=== PATIENT | female | born 1935 | race Caucasian/White ===

== ENCOUNTER 2025-08-10 16:49 | Inpatient (IN) | payer MEDICARE, SELFPAY ==
--- NOTE | 2025-08-10 17:12 | W.PM.HP.N ---
Date of service: 08/10/25 Time of Service: 18:58 Assessment and Plan Assessment and plan (1) Atrial fibrillation: Status: Chronic Assessment and plan: Hx of A-fib - in NSR as per EP Ablation and Watchman [place] [facility] [place] subsequent development of confusion On amiodarone until 09/07 On Eliquis On metoprolol succinate telemetry (2) History of cardiac ablation: Status: Acute Assessment and plan: As above (3) Presence of Watchman left atrial appendage closure device: Status: Acute Assessment and plan: As abode [facility] [place] to arrange ARIES outpatient in 45 days (4) HTN (hypertension): Status: Chronic Assessment and plan: Imdur and Losartan held prior to transfer from [facility] Ongoing Toprol Will continue to monitor (5) Orthostatic hypotension: Status: Acute Assessment and plan: Dr Downing reported ARIES w EF 45% mostl likely d/t intuibation during completion - could not have an evaluation of her IVC Ortho positive on arrival depite uncomplete eval - would not wincher place for BP reading Slow IVF tonight Labs in AM (6) Delirium secondary to multiple medical problems: Status: Acute Assessment and plan: Consider head CT in AM if confusion persist overnight -if not done [place] [facility] Seroquel 12.5 mg PO X1 - low threshold to repeat d/t amiodarone Zoloft held [place] [facility] On ongoing cymbalta discussed with Dr. Guadarrama History of Present Illness History of Present Illness Chief Complaint: orthostasis, confusion , unsteady gait Narrative: This 89 years old female patient with a past medical history of HTN, atrial fibrillation s/p completion of ablation and watchman [place]07/[place] [facility] [place] transferred to [facility] today due to acute confusion m with suspicion of a component of undiagnosed dementia and delirium in the setting of acute hospitalization as welll as urinary retention with blodder scan 500-600 cc and 200cc s/p void when staff insisted. Dr. Downing indicated that amiodarone should be ongoing until 09/07/2025 and eliquis 2.5 mg PO BID until ARIES that will be arranged by EP is completed outpatient in 45 days. The patient also had zyprexa once and no other antipsychotics. On arrival the patient was confused, insisting on speaking to her daughter. She has no recollection when oriented, and thinks she is going home. The patient is a poor historian at this time but no report of chest pain, chills, fever , nausea , vomiting or dysuria. Will attempt to obtain a more complete history as the patient is not receiving outpatient care in the [facility] system. Review of Systems All systems reviewed & are unremarkable except as noted in HPI and below PFSH All Active Problems (Updated 08/10/25 @ 19:18 by Nicole Louis APRN) Delirium secondary to multiple medical problems (Acute) Orthostatic hypotension (Acute) HTN (hypertension) (Chronic) Presence of Watchman left atrial appendage closure device (Acute) History of cardiac ablation (Acute) Atrial fibrillation (Chronic) Social History Smoking risk assessment performed?: No Meds Allergies and Home Medications Allergies Allergy/AdvReac Type Severity Reaction Status Date / Time No Known Drug Allergies Allergy Unknown Other (See Verified 08/10/25 19:03 Comment) Home Medications ?Medication ?Instructions ?Recorded ?Confirmed ?Type amiodarone 200 mg tablet (Pacerone) 200 mg PO DAILY 08/10/25 08/10/25 History apixaban 2.5 mg tablet (Eliquis) 2.5 mg PO BID 08/10/25 08/10/25 History duloxetine 20 mg capsule,delayed 20 mg PO DAILY 08/10/25 08/10/25 History release fluoxetine 10 mg capsule (Prozac) 10 mg PO DAILY 08/10/25 08/10/25 History metoprolol succinate 25 mg 25 mg PO BID 08/10/25 08/10/25 History tablet,extended release 24 hr Exam Narrative Exam Narrative: Alert and confused, no acute distress, neurologically intact,unlabored breathing, clear lungs S1 S2 regular no murmur, LUE hematoma- stable, abdomen is non-acute, no CVA tenderness , moves all 4 extremities equally Time Spent Time spent with Patient: >75 minutes Time was spent: preparing to see the patient(eg.review tests), obtaining and/or reviewing separately otained hiistory, ordering medications,tests, procedures, referring, communicating with other health point of care specialist, indepentently interpreting results, counseling the patient, care coordination and other
[2025-08-10 18:24] VITALS: BP 134/88; PULSE 89; RESP 20; TEMP 37; O2SAT 92
[2025-08-10] MEDS: QUEtiapine 25 MG TAB 12.5 MG PO (18:40)
--- NOTE | 2025-08-10 18:54 | W.PC.ACHO ---
Registration Status: ADM IN Primary Language: Preferred Language: Most Recent Vital Signs Temperature 37 C 08/10/25 18:24 Temperature Source Temporal Artery Scan 08/10/25 18:24 Pulse 89 08/10/25 18:24 Respiratory Rate 20 08/10/25 18:24 Blood Pressure 134/88 08/10/25 18:24 Blood Pressure Mean 103 08/10/25 18:24 Pulse Oximetry 92 08/10/25 18:24 Oxygen Delivery Method Nasal Cannula 08/10/25 18:24 Oxygen Flow Rate 2 08/10/25 18:24 Active Medications Generic Name Dose Route Start Last Admin Trade Name Freq PRN Reason Stop Dose Admin Quetiapine Fumarate 12.5 mg 08/10/25 17:03 08/10/25 18:40 Quetiapine 25 Mg Tab PO 12.5 mg HS PRN PRN Administration Diet Orders Category Date Time Status Heart Healthy Eating [DIET] Nutrition 08/10/25 Dinner Active v v v v v v v v v Sending and/or Receiving Nurses: Please use comment section below to note any information pertinent to the patient hand-off not included above. Information / Comments: Report received from: Iza @ 1805 from [facility]. Pt arrived to the unit @1820.
--- NOTE | 2025-08-10 19:33 | TELEP.MEDR_ITS ---
Date of service: 08/10/25 Time of Service: 19:33 [facility] Med Rec Allergies Allergies: No Known Drug Allergies Allergy (Unknown, Verified 08/10/25 19:03) Other (See Comment) Interview Person Interviewed: Patient transfer from [facility] discharge summary reviewed in lieu of patent interview due to delirium post-procedure. MAR reviewed for previous administrations. Quality Quality of Interview/Accuracy of Medication List: Excellent Sources Sources used to compile medication list: MAR and Other Changes made to Home Medication List: ADDITIONS: none DELETIONS: fluoxetine - discontinued in 2023 CHANGES: Please note changes from home meds: * apixaban was dose reduced to 2.5mg BID * losartan DC * isosorbide mono 30mg DC Additional Notes Additional Notes: Prior to inpatient stay patient was also on Simvastatin 5mg and omeprazole 40mg QD which have not been reordered, please review. Recommended Changes Attestation: The home medication list is now updated to the best of my knowledge and is ready to be reconciled by the provider. Please contact the [facility] Medication Reconciliation Pharmacist at for any questions. Meds Allergies and Home Medications Allergies Allergy/AdvReac Type Severity Reaction Status Date / Time No Known Drug Allergies Allergy Unknown Other (See Verified 08/10/25 19:03 Comment) Home Medication ?Medication ?Instructions ?Recorded amiodarone 200 mg tablet (Pacerone) 200 mg PO DAILY apixaban 2.5 mg tablet (Eliquis) 2.5 mg PO BID 5 duloxetine 20 mg capsule,delayed 20 mg PO DAILY release metoprolol succinate 25 mg 25 mg PO BID 08/10/25 tablet,extended release 24 hr Current Visit Medications: Current Medications Generic Name Dose Route Start Last Admin Trade Name Freq PRN Reason Stop Dose Admin Acetaminophen 1,000 mg 08/10/25 20:00 Acetaminophen 500 Mg Tab PO TID VANGIE Al Hydrox/Mg Hydrox/Simethicone 30 ml 08/10/25 16:49 Mylanta Suspension 30 Ml Cup PO Q2H PRN PRN Albuterol Sulfate 2.5 mg 08/10/25 16:49 Albuterol 2.5 Mg/3 Ml Inh Soln Vial UPD Q2H PRN PRN Albuterol/Ipratropium 3 ml 08/10/25 16:49 Albuterol/Ipratropium 3 Ml Upd Vial UPD Q6H PRN PRN Amiodarone HCl 200 mg 08/11/25 08:30 Amiodarone 200 Mg Tab PO 09/07/25 23:59 DAILY [facility] Apixaban 2.5 mg 08/10/25 20:00 Apixaban 2.5 Mg Tab PO BID [facility] Docusate Sodium 100 mg 08/10/25 20:00 Docusate Sodium 100 Mg Cap PO BID [facility] Duloxetine HCl 20 mg 08/11/25 08:30 Duloxetine 20 Mg Cap PO DAILY [facility] Ringer's Solution 1,000 mls @ 50 mls/hr 08/10/25 19:00 IV 08/11/25 07:00 INFUSION [facility] IV Miscellaneous Supplies 1 each 08/10/25 17:00 Iv Access IV DIRECTED [facility] Melatonin 9 mg 08/10/25 20:00 Melatonin 3 Mg Tab PO HS [facility] Metoprolol Succinate 25 mg 08/10/25 20:00 Metoprolol Cr 25 Mg Tabcr PO BID [facility] Omeprazole 40 mg 08/11/25 07:30 Omeprazole 20 Mg Capcr PO DAILY@0730 [facility] Polyethylene Glycol 17 gm 08/11/25 08:30 Polyethylene Glycol 3350 17 Gm Packet PO DAILY [facility] Quetiapine Fumarate 12.5 mg 08/10/25 17:03 08/10/25 18:40 Quetiapine 25 Mg Tab PO 12.5 mg HS PRN PRN Administration Sodium Chloride 0 ml 08/10/25 16:49 Normal Saline Flush 10 Ml Syr IVP PRN PRN Sodium Chloride 0 ml 08/10/25 20:00 Normal Saline Flush 10 Ml Syr IVP BID [facility] Sodium Chloride 0 ml 08/10/25 16:49 Normal Saline 10 Ml Vial IJ DIRECTED PRN
--- NOTE | 2025-08-10 19:33 | TELEP.MEDREC ---
Date of service: 08/10/25 Time of Service: 19:33 [facility] Allergies Allergies: No Known Drug Allergies Allergy (Unknown, Verified 08/10/25 19:03) Other (See Comment) Interview Person Interviewed: Patient transfer from [facility] discharge summary reviewed in lieu of patent interview due to delirium post-procedure. MAR reviewed for previous administrations. Quality Quality of Interview/Accuracy of Medication List: Excellent Sources Sources used to compile medication list: MAR and Other Changes made to Home Medication List: ADDITIONS: none DELETIONS: fluoxetine - discontinued in 2023 CHANGES: Please note changes from home meds: apixaban was dose reduced to 2.5mg BID losartan DC isosorbide mono 30mg DC Additional Notes Additional Notes: Prior to inpatient stay patient was also on Simvastatin 5mg and omeprazole 40mg QD which have not been reordered, please review. Recommended Changes Attestation: The home medication list is now updated to the best of my knowledge and is ready to be reconciled by the provider. [facility] Med[facility] Reconciliation Pharmacist at for any questions. Meds Allergies and Home Medications Allergies Allergy/AdvReac Type Severity Reaction Status Date / Time No Known Drug Allergies Allergy Unknown Other (See Verified 08/10/25 19:03 Comment) Home Medication ?Medication ?Instructions ?Recorded amiodarone 200 mg tablet (Pacerone) 200 mg PO DAILY 08/10/25 apixaban 2.5 mg tablet (Eliquis) 2.5 mg PO BID 08/10/25 duloxetine 20 mg capsule,delayed 20 mg PO DAILY 08/10/25 release metoprolol succinate 25 mg 25 mg PO BID 08/10/25 tablet,extended release 24 hr Current Visit Medications: Current Medications Generic Name Dose Route Start Last Admin Trade Name Freq PRN Reason Stop Dose Admin Acetaminophen 1,000 mg 08/10/25 20:00 Acetaminophen 500 Mg Tab PO TID VANGIE Al Hydrox/Mg Hydrox/Simethicone 30 ml 08/10/25 16:49 Mylanta Suspension 30 Ml Cup PO Q2H PRN PRN Albuterol Sulfate 2.5 mg 08/10/25 16:49 Albuterol 2.5 Mg/3 Ml Inh Soln Vial UPD Q2H PRN PRN Albuterol/Ipratropium 3 ml 08/10/25 16:49 Albuterol/Ipratropium 3 Ml Upd Vial UPD Q6H PRN PRN Amiodarone HCl 200 mg 08/11/25 08:30 Amiodarone 200 Mg Tab PO 09/07/25 23:59 DAILY [facility] Apixaban 2.5 mg 08/10/25 20:00 Apixaban 2.5 Mg Tab PO BID [facility] Docusate Sodium 100 mg 08/10/25 20:00 Docusate Sodium 100 Mg Cap PO BID [facility] Duloxetine HCl 20 mg 08/11/25 08:30 Duloxetine 20 Mg Cap PO DAILY [facility] Ringer's Solution 1,000 mls @ 50 mls/hr 08/10/25 19:00 IV 08/11/25 07:00 INFUSION [facility] IV Miscellaneous Supplies 1 each 08/10/25 17:00 Iv Access IV DIRECTED [facility] Melatonin 9 mg 08/10/25 20:00 Melatonin 3 Mg Tab PO HS [facility] Metoprolol Succinate 25 mg 08/10/25 20:00 Metoprolol Cr 25 Mg Tabcr PO BID [facility] Omeprazole 40 mg 08/11/25 07:30 Omeprazole 20 Mg Capcr PO DAILY@0730 [facility] Polyethylene Glycol 17 gm 08/11/25 08:30 Polyethylene Glycol 3350 17 Gm Packet PO DAILY [facility] Quetiapine Fumarate 12.5 mg 08/10/25 17:03 08/10/25 18:40 Quetiapine 25 Mg Tab PO 12.5 mg HS PRN PRN Administration Sodium Chloride 0 ml 08/10/25 16:49 Normal Saline Flush 10 Ml Syr IVP PRN PRN Sodium Chloride 0 ml 08/10/25 20:00 Normal Saline Flush 10 Ml Syr IVP BID VANGIE Sodium Chloride 0 ml 08/10/25 16:49 Normal Saline 10 Ml Vial IJ DIRECTED PRN
[2025-08-10] MEDS: Metoprolol CR 25 MG TABCR PO (19:57)
[2025-08-10] MEDS: Docusate Sodium 100 MG CAP PO (19:57)
[2025-08-10] MEDS: Acetaminophen 500 MG TAB 1000 MG PO (19:57)
[2025-08-10] MEDS: Apixaban 2.5 MG TAB PO (19:58)
[2025-08-10] MEDS: Melatonin 3 MG TAB 9 MG PO (19:58)
[2025-08-10] MEDS: Normal Saline Flush 10 ML SYR IVP (20:02)
[2025-08-11] VITALS (8 sets, daily range): BP systolic 89–142; BP diastolic 59–85; PULSE 66–85; RESP 16–17; TEMP 36.5–37.5; O2SAT 91–99
[2025-08-11 00:25] LABS: Glucose Negative (Negative)
[2025-08-11] MEDS: Lactated Ringers 1,000 ML 50 ML IV (01:19)
[2025-08-11 06:45] LABS: Abs Immature Grans 0.01 10^3/uL (0.0-0.06); HCT 24.8 % (36.0-46.0); HGB 8.3 g/dL (11.2-15.7); Immature Grans % 0.2 %; MCH 35.3 pg (27.0-33.0); MCHC 33.5 % (32.0-36.0); MCV 106 fL (80-95); MPV 10.7 fL (8.0-11.0); Platelet Count 233 10^3/uL (130-400); RBC 2.35 10^6/uL (3.93-5.22); RDW 16.7 % (11.7-14.6); RDW-SD 62.5 fL; WBC 4.35 10^3/uL (4.4-10.8)
[2025-08-11 07:03] LABS: ALT 18 U/L (14-59); AST 27 U/L (15-37); Albumin 3.0 g/dL (3.4-5.0); Alkaline Phosphatase 60 U/L (46-116); Anion Gap 6.2 mmol/L (3-11); BUN 28 mg/dL (7-18); Bilirubin, Total 0.8 mg/dL (0.2-1.0); CO2 33.8 mmol/L (21.0-32.0); Calcium 8.7 mg/dL (8.5-10.1); Chloride 99 mmol/L (98-107); Estimated GFR 61.49 (mL/min/1.73m2); Glucose 109 mg/dL (74-106); Magnesium 2.1 mg/dL (1.8-2.4); Potassium 3.5 mmol/L (3.5-5.1); Sodium 139 mmol/L (136-145); Total Protein 6.1 g/dL (6.4-8.2)
[2025-08-11 07:30] LABS: Anisocytosis 2+; Hypochromasia 1+; Macrocytosis 1+
--- NOTE | 2025-08-11 07:32 | PDOC.CMIN ---
Date of service: 08/11/25 Time of Service: 16:07 Care Management Initial Assmt Initial Assessment Reason for Hospitalization: Orthostasis, urinary retention, confusion/delirium Functional Status/Living Situation Patient Presentation: Martha was lying in bed and awake when CM met with her. Per report, Martha was an acute transfer from [facility] yesterday. Martha is s/p ablation and Watchman procedure complete 08/07/25. CM contacted [facility] to request documentation regarding HCA vs. AD and COLST; documentation is currently pending, will review with Martha once received. A palliative care consult has also been requested. Per Physical Therapy, the current recommendation is for Martha to return to her assisted living facility with home health PT services. Martha was pleasant and engaged easily in conversation. Her son, Kai, visited earlier today, and per Martha, her [id number] plans to visit tomorrow to bring her personal rollator. Martha anticipates that she will return to her assisted living facility at the time of discharge. The following information was provided by [facility]. Per RN Martha has been residing at the facility since 03/14/25 and is well-known to the nursing staff. She has two living sons, Addy and Kai; her third child is . Her children are considered supportive, and Kai serves as her financial DPOA. Martah reports, and staff confirm, that she is independent within her assisted living facility and ambulates with a rollator. At baseline, she is able to walk approximately 65 feet to the dining room three times daily and is independent with her ADLs, including toileting and dressing?both of which are required for her to return to the facility. According to the RN, Martha is typically alert and oriented to person, place, and time. CM will continue to follow. Town of Residence: [place] Resides with: Other ([facility]- assisted living ) Significant Other/Family: Local (Kai Chavez) Natural Supports: 2 children; Addy and Kai Instrumental Activities of Daily Living (ADLs): Independent Medications Medication Management: No Issues/Barriers identified Physical Functioning/Mobility Assistive Device: rollator Advance Directives Advance Directives: Do you have an Advance Directive: AD On File at [facility]: Date Asked AD Date Reviewed COLST On File at [facility] COLST Date Scanned Code Status Resuscitation Status Full Code Portal Pt does not currently have a portal and education provided: Yes Insurance Coverage/Financial Issues Insurance: bcbs vt mcr advantage Care Team Visit Care Team Role Provider Type Luzma Collins Primary Care Provider ADV PRACTICE REGISTERED NURSE InPatient Bacilio Arevalo Other Providers OTHER Cooper Bro MD Other Providers [facility] STAFF PHYSICIAN Jeremiah Guadarrama MD Admit Provider [facility] STAFF PHYSICIAN Attending Provider Discharge Potential Discharge Needs: PT Evaluation and PCP F/U Appt Anticipated Barriers to Discharge: None Identified Patient/Family Education Needs: Review discharge instructions, discuss Ask Me Three Transportation: RCT Plan: Anticipate Martha will be discharged back to [facility] with new HH PT once medically ready. It is recommended she follow up with community provider and discharge plan of care. She will transport via private vehicle by her son. CM will continue to follow. Social Determinants of Health Screening Will the Patient Participate in the Screening?: Unable to obtain PFSH All Active Problems (Updated 08/11/25 @ 10:07 by Nicole Louis APRN) Urinary retention (Acute) Delirium secondary to multiple medical problems (Acute) Orthostatic hypotension (Acute) HTN (hypertension) (Chronic) Presence of Watchman left atrial appendage closure device (Acute) History of cardiac ablation (Acute) Atrial fibrillation (Chronic) Social History Smoking/Tobacco Use Status: Never Smoking risk assessment performed?: Yes Readmission Within the Past 30 Days Yes or No: No
--- NOTE | 2025-08-11 07:48 | W.PM.PROGNOT ---
Date of Service Date of service: 08/11/25 Time of Service: 07:48 Assessment and Plan Assessment and plan (1) Atrial fibrillation: Status: Chronic Assessment and plan: Hx of A-fib - in NSR as per EP Ablation and Watchman procedure completed on 08/07/25 at [facility] with subsequent development of confusion Ongoing amiodarone until 09/07 On Eliquis until repeat ARIES at least Ongoing metoprolol succinate telemetry d/c stable overnight in a NSR (2) History of cardiac ablation: Status: Acute Assessment and plan: As above (3) Urinary retention: Status: Acute Assessment and plan: As per HPI Cr 0.9 and BUN 28 - could indicate dehydration VS other cause of BUN increase Urology consult with Sheeba Patel DOOR SERVICEMAN: - no indication for flomax - Bowel meds for constipation (4) Presence of Watchman left atrial appendage closure device: Status: Acute Assessment and plan: As above [facility] EP to arrange ARIES outpatient in 45 days- f/u asper PCP (5) HTN (hypertension): Status: Chronic Assessment and plan: Imdur and Losartan held prior to transfer from [facility] Ongoing Toprol Will continue to monitor (6) Orthostatic hypotension: Status: Acute Assessment and plan: Dr Downing reported ARIES w EF 45% mostl likely d/t intuibation during completion - could not have an evaluation of her IVC Ortho positive on arrival depite uncomplete eval - 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 Guadarrama Exam Narrative Exam Narrative: 89 year old female patient looking of stated age, improving mentation and less restless this morning, Alert to self, person, palace and situation, no acute distress, neurologically intact,unlabored breathing, clear lungs S1 S2 regular no murmur, LUE hematoma- stable, abdomen is round , non-distended, semi-firm, nontender, bowel sounds are present no CVA tenderness , moves all 4 extremities equally Objective Last Vital Signs Temp 37.5 C 08/11/25 07:35 Pulse 71 10/13/25 07:35 Resp 16 08/11/25 07:35 BP 142/85 H 08/11/25 07:35 Pulse Ox 99 08/11/25 07:43 Laboratory Results - last 24 hr 08/11/25 08/11/25 00:05 06:20 WBC 4.35 L RBC 2.35 L Hgb 8.3 L Hct 24.8 L MCV 106 H MCH 35.3 H MCHC 33.5 RDW 16.7 H Plt Count 233 MPV 10.7 Immature Gran % 0.2 Neutrophils % 53.3 Lymphocytes % 23.7 Monocytes % 20.5 Eosinophils % 1.6 Basophils % 0.7 Nucleated RBC % 0.0 Absolute Neutrophils 2.32 Absolute Lymphocytes 1.03 L Absolute Monocytes 0.89 H Absolute Eosinophils 0.07 Absolute Basophils 0.03 RBC Morphology See Below Hypochromasia 1+ Anisocytosis 2+ Macrocytosis 1+ Sodium 139 Potassium 3.5 Chloride 99 Carbon Dioxide 33.8 H Anion Gap 6.2 BUN 28 H Creatinine 0.9 Est GFR (CKD-EPI 2020) 61.49 Glucose 109 H Calcium 8.7 Magnesium 2.1 Total Bilirubin 0.8 AST 27 ALT 18 Alkaline Phosphatase 60 Total Protein 6.1 L Albumin 3.0 L Urine Color Yellow Urine Clarity Clear Urine pH 6.0 Ur Specific Patterson 1.020 Urine Protein Negative Urine Ketones Negative Urine Blood Negative Urine Nitrite Negative Urine Bilirubin Negative Urine Urobilinogen 0.2 Ur Leukocyte Esterase Negative Urine Glucose Negative Time Spent with Patient Time Spent with Patient: >50 minutes Time was spent: preparing to see the patient(eg.review tests), obtaining and/or reviewing separately otained hiistory, ordering medications,tests, procedures, referring, communicating with other health respiratory care technician, indepentently interpreting results, counseling the patient, care coordination and other
[2025-08-11] MEDS: Metoprolol CR 25 MG TABCR PO ×2 (08:23→19:54)
[2025-08-11] MEDS: Acetaminophen 500 MG TAB 1000 MG PO ×2 (08:23→19:53)
[2025-08-11] MEDS: Apixaban 2.5 MG TAB PO ×2 (08:23→19:53)
[2025-08-11] MEDS: Omeprazole 20 MG CAPCR 40 MG PO (08:23)
[2025-08-11] MEDS: Amiodarone 200 MG TAB PO (08:23)
[2025-08-11] MEDS: DULoxetine 20 MG CAP PO (08:24)
[2025-08-11] MEDS: Normal Saline Flush 10 ML SYR IVP ×2 (08:24→19:54)
[2025-08-11] MEDS: Docusate Sodium 100 MG CAP PO ×2 (08:24→19:54)
[2025-08-11] MEDS: Polyethylene Glycol 3350 17 GM PACKET PO (08:24)
--- NOTE | 2025-08-11 08:50 | PT.INIE ---
PT Notes Visit Reasons: Orthostasis, Urinary Retention, Confusion/Delirium Physical Therapy Inpatient Initial Evaluation Date: 08/11/2025 Referring Doctor: Nicole Louis NP PT Orders: PT CONSULT: Eval for Assistive Device. Safety Consult for D/C. Fall safety assessment Precautions: Impaired safety awareness, at risk for falls. Standard. Activity as tolerated. Patient Profile/Admitting Diagnosis: Patient is an 89-year-old female who presented to the ED with symptoms of increased confusion. Patient is admitted for management of AF, S/P cardiac ablation and placement of watchan L atrial appendage closure device on 08/07/2025, HTN, orthostatic hypotension with EF of 45%, and delirium. PMHX: All Active Problems (Updated 08/10/25 @ 19:18 by Nicole Louis APRN) Delirium secondary to multiple medical problems (Acute) Orthostatic hypotension (Acute) HTN (hypertension) (Chronic) Presence of Watchman left atrial appendage closure device (Acute) History of cardiac ablation (Acute) Atrial fibrillation (Chronic) Social History/Home Situation: Patient stated that she has stayed for the past 6 months as a resident of [facility]. She was using her 4 wheeled walker there to walk. Equipment Owned/DME: 4WW Subjective: Novi weak. Denied headache, chest pain, and lightheadedness throughout session. Okay to go for a short walk inside her room. Could not rememeber what she had fro breakfast. Objective: General Observation: Resting in bed. OPERATING ENGINEER APPRENTICE Blaze with patient doing supine BP. Mental Status: Alert and oriented as to person. Able to pay attention, focus, and respond appropriately. Knew that she is in a hospital [place] facility. Pain: None reported Vital Signs: BP supine 119/68 mmHg, HR supine 73 bpm BP sitting 93/68 mmHg, HR sitting 84 bpm BP standing 89/59 mmHg, HR standing 84 bpm ROM: Right Upper Extremity: Shoulder Flexion WFL. Shoulder abduction WFL. Elbow flexion WFL. Wrist flexion WFL. Functional opening and closing of hand WFL. Left Upper Extremity: Shoulder Flexion WFL. Shoulder abduction WFL. Elbow flexion WFL. Wrist flexion WFL. Functional opening and closing of hand WFL. Right Lower Extremity: Hip flexion WFL. Hip abduction WFL. Knee flexion WFL. Ankle dorsiflexion to neutral only. Ankle plantarflexion WFL. Left Lower Extremity: Hip flexion WFL. Hip abduction WFL. Knee flexion WFL. Ankle dorsiflexion to neutral only. Ankle plantarflexion WFL. Strength: Right Upper Extremity: Shoulder flexors 4-/5. Shoulder abductors 4-/5. Elbow flexors 4-/5. Elbow extensors 4-/5. Avionics Technician strong. Left Upper Extremity: Shoulder flexors 4-/5. Shoulder abductors 4-/5. Elbow flexors 4-/5. Elbow extensors 4-/5. Avionics Technician strong. Right Lower Extremity: Hip flexors 3+/5. Hip abductors 3+/5. Knee flexors 4/5. Knee extensors 4-/5. Ankle dorsiflexors 3-/5. Ankle plantarflexors 3-/5. Left Lower Extremity: Hip flexors 3+/5. Hip abductors 3+/5. Knee flexors 4/5. Knee extensors 4-/5. Ankle dorsiflexors 3-/5. Ankle plantarflexors 3-/5. Bed Mobility/Transfers: Minimal cueing provided for use of B hands as needed for support, movement sequence, AD management, and posture to reduce fall risk and minimize pain report Rolling stand by assist with HOB at 30 degrees Supine to sit stand by assist Sit to stand contact guard assist with FWW Stand to sit contact guard assist with FWW Bed to reclining chair contact guard assist with FWW Gait: Instructed patient with level surface ambulation of 30 feet requiring contact guard assist. Gabbi decreased. Step height decreased. Step length decreased. denied headache, chest pain, and lightheadedness throughout session. No SOB. No LOB. Balance: Static Sitting: Good Dynamic Sitting: Good Static Standing: Fair Dynamic Standing: Fair Special Tests: Mobility Limitations Standardized Measure [facility] AM-PAC 6 clicks Basic Mobility Inpatient Short Form: Raw Score: 16 CMS Score: 54% deficit 4-Stage Balance Test: Feet together 10 seconds Semi-tandem Unable Full tandem deferred One-legged stance deferred Informed Consent/Education: Patient was instructed in purpose of PT consult and plan of care. Agreeable to proceed with established PT POC to achieve personal goals. Assessment: Patient required contact guard assistance for short distance ambulation during this session without any complaints of lightheadedness, dizziness, headache, nor chest pain despite decrease in blood pressure as above with positional change. Patient presents with clinical signs and symptoms consistent with current/admitting diagnoses that have resulted to mobility limitations, gait instability, generalized weakness, and overall ADL decline as demonstrated by the following impairment level findings: 1. Decreased strength to B UE/LE major muscle groups 2. Impaired standing balance 3. Impaired activity tolerance Impairments are contributing to the following functional limitations: 1. Decline in bed mobility skills 2. Decline in transfer skills 3. Difficulty with ambulation without assistive device and physical assistance 4. Increased completion time for mobility ADL performance 5. Increased risk for falls Patient is assessed as a 81792 moderate complexity based on the following: History: 89-year-old female with past medical history as indicated above Examination: Demonstrable impairment in strength, balance, and mobility level with underlying impairments and functional limitations as exhibited above as well as deficit score of 54% utilizing the [facility] Mobility Inpatient Short Form Presentation: Evolving Decision Makin moderate complexity Goals: Goals X1 week 1. Supine-Sit independent 2. Sit-Supine independent 3. Sit-Stand independent 4. Stand-Sit independent with 4WW 5. Bed-Chair independent with 4WW 6. Chair-Bed independent with 4WW 7. Independent gait on level surface with use of 4WW for at least 150 feet without report of pain nor dyspnea 8. Independent with home exercise program 9. Good static and dynamic standing balance/tolerance Plan of Care/Treatment Plan: 1-2x/day, 7 days/week x 1 week. Plan of care has been reviewed with the LD TEACHER providing the service under Physical Therapy direction. Initiate Physical Therapy intervention for pain management as needed, strengthening, bed mobility, transfers, gait, stairs, balance training, and use of assistive device. DISCHARGE RECOMMENDATIONS: Return to [facility] with PT TREATMENT CODE/TIME: 76582 x 28 minutes for 1 unit (8:50-9:18). Thank you for the opportunity to participate in the care of this patient. Chelsea Delvalle PT, DPT, CLT [facility] [place], [place]
[2025-08-11 09:55] LABS: Lab Add On Test DONE
[2025-08-11] MEDS: Milk of Magnesia 30 ML CUP PO (10:13)
[2025-08-11] MEDS: Lactated Ringers 250 ML 100 ML IV (10:13)
[2025-08-11 11:01] LABS: Ammonia < 10 umol/L (11-32)
[2025-08-11] MEDS: Bisacodyl 10 MG SUPP PR (15:57)
--- NOTE | 2025-08-11 16:36 | UCONE_ITS ---
Date of service: 08/11/25 Time of Service: 12:00 Assessment and Plan Assessment and plan (1) Urinary retention: Status: Acute Assessment and plan: Reviewed urinalysis that was negative for infection. Urinary retention in women's very rarely due to bladder outlet obstruction. It tends to be much more likely to be related to functional issues such as pelvic floor dysfunction, neurologic issues, constipation, medications and psychogenic issues. Discussed with patient and hospitalist team that patient per family has not had a bowel movement in 5 days and that more than likely her urinary retention at this point is related to constipation. Recommended they address the constipation concern and continue with intermittent catheterizations. Due to patient being a fall risk and the higher risk for infection, we do not recommend an indwelling Deleon. All parties expressed understanding. We did attempt to request her Dr. Ordonez urology file. [facility] noted that the practice is out of service at this time but given answering line where we could request records. Turning Lathe Tender did so. Will review when available and provide further treatment plan if indicated during the course of this patient's stay at our facility. Dictation was done by [employer] voice recognition. Errors may be present within the note. A total of 25 minutes was spent reviewing this patient's EMR, oavx-ds-dyic time, and documenting. History of Present Illness History of Present Illness Chief Complaint: Urinary retention Narrative: Martha is an 89-year-old female that was transferred from [facility] to [facility] yesterday (08/10/2025). Patient underwent completion of ablation and Watchman procedure on 08/07/2025 at [facility]. During patient's time here at our facility she has needed to have intermittent catheterizations due to inability to void. Patient notes that she has had this in the past where she needed CIC for several weeks at a time. She also states that she has an extensive urologic history and has been followed by Dr. Ordonez out of [facility]. Patient notes that she saw Dr. Ordonez approximately 2 to 3 months ago. At that time patient was voiding without concerns. Patient's sons are present in her room at time of consult. They provide information in terms of patient needing an indwelling catheter when she was hospitalized related to pneumonia earlier this year. They also report that she resides at [facility] and has needed intermittent catheterizations at that time. Patient reports that she is currently without a bowel movement for approximately the last 5 days. She notes that she feels a sensation to void but cannot produce any urine. She states that the nursing staff has been able to catheterize her without concern. Prior to her [facility] procedure patient notes that she was voiding without concern. No gross hematuria or dysuria at that time. Consults Consult date: 08/11/25 Requesting physician: Nicole Louis Review of Systems Narrative: As noted in HPI PFSH All Active Problems Urinary retention (Acute) Delirium secondary to multiple medical problems (Acute) Orthostatic hypotension (Acute) HTN (hypertension) (Chronic) Presence of Watchman left atrial appendage closure device (Acute) History of cardiac ablation (Acute) Atrial fibrillation (Chronic) Social History Smoking/Tobacco Use Status: Never Smoking risk assessment performed?: Yes Exam Const Orientation: alert, awake and oriented x3 Eyes Sclera: sclerae normal Resp Effort & Inspection: normal respiratory effort GI Inspection: normal to inspection and non-distended Results Last Vital Signs Temp 97.7 F 08/11/25 15:10 Pulse 66 08/11/25 15:10 Resp 17 08/11/25 15:10 BP 135/85 08/11/25 15:10 Pulse Ox 93 08/11/25 15:10 Labs 08/11/25 06:20 08/11/25 06:20 Labs: Laboratory Results - last 24 hr 08/11/25 08/11/25 08/11/25 00:05 06:20 10:12 WBC 4.35 L RBC 2.35 L Hgb 8.3 L Hct 24.8 L MCV 106 H MCH 35.3 H MCHC 33.5 RDW 16.7 H Plt Count 233 MPV 10.7 Immature Gran % 0.2 Neutrophils % 53.3 Lymphocytes % 23.7 Monocytes % 20.5 Eosinophils % 1.6 Basophils % 0.7 Nucleated RBC % 0.0 Absolute Neutrophils 2.32 Absolute Lymphocytes 1.03 L Absolute Monocytes 0.89 H Absolute Eosinophils 0.07 Absolute Basophils 0.03 RBC Morphology See Below Hypochromasia 1+ Anisocytosis 2+ Macrocytosis 1+ Sodium 139 Potassium 3.5 Chloride 99 Carbon Dioxide 33.8 H Anion Gap 6.2 BUN 28 H Creatinine 0.9 Est GFR (CKD-EPI 2020) 61.49 Glucose 109 H Calcium 8.7 Magnesium 2.1 Total Bilirubin 0.8 AST 27 ALT 18 Alkaline Phosphatase 60 Ammonia < 10 L Total Protein 6.1 L Albumin 3.0 L Urine Color Yellow Urine Clarity Clear Urine pH 6.0 Ur Specific [place] 1.020 Urine Protein Negative Urine Ketones Negative Urine Blood Negative Urine Nitrite Negative Urine Bilirubin Negative Urine Urobilinogen 0.2 Ur Leukocyte Esterase Negative Urine Glucose Negative Add-On Test Request 08/11/25 Unknown WBC RBC Hgb Hct MCV MCH MCHC RDW Plt Count MPV Immature Gran % Neutrophils % Lymphocytes % Monocytes % Eosinophils % Basophils % Nucleated RBC % Absolute Neutrophils Absolute Lymphocytes Absolute Monocytes Absolute Eosinophils Absolute Basophils RBC Morphology Hypochromasia Anisocytosis Macrocytosis Sodium Potassium Chloride Carbon Dioxide Anion Gap BUN Creatinine Est GFR (CKD-EPI 2020) Glucose Calcium Magnesium Total Bilirubin AST ALT Alkaline Phosphatase Ammonia Total Protein Albumin Urine Color Urine Clarity Urine pH Ur Specific [place] Urine Protein Urine Ketones Urine Blood Urine Nitrite Urine Bilirubin Urine Urobilinogen Ur Leukocyte Esterase Urine Glucose Add-On Test Request DONE
[2025-08-11] MEDS: Melatonin 3 MG TAB 9 MG PO (19:53)
[2025-08-11] MEDS: QUEtiapine 25 MG TAB 12.5 MG PO (19:53)
[2025-08-12 05:06] VITALS: BP 116/77; PULSE 72; RESP 16; TEMP 36.6; O2SAT 93
[2025-08-12 06:58] LABS: Abs Immature Grans 0.03 10^3/uL (0.0-0.06); HCT 25.5 % (36.0-46.0); HGB 8.4 g/dL (11.2-15.7); Immature Grans % 0.5 %; MCH 35.3 pg (27.0-33.0); MCHC 32.9 % (32.0-36.0); MCV 107 fL (80-95); MPV 10.5 fL (8.0-11.0); Platelet Count 253 10^3/uL (130-400); RBC 2.38 10^6/uL (3.93-5.22); RDW 17.0 % (11.7-14.6); RDW-SD 63.3 fL; WBC 5.97 10^3/uL (4.4-10.8)
[2025-08-12 07:23] LABS: Anion Gap 6.2 mmol/L (3-11); BUN 19 mg/dL (7-18); CO2 34.8 mmol/L (21.0-32.0); Calcium 8.7 mg/dL (8.5-10.1); Chloride 101 mmol/L (98-107); Estimated GFR 70.83 (mL/min/1.73m2); Glucose 107 mg/dL (74-106); Potassium 3.9 mmol/L (3.5-5.1); Sodium 142 mmol/L (136-145)
[2025-08-12 07:27] VITALS: BP 147/77; PULSE 66; RESP 17; TEMP 36.7; O2SAT 89
[2025-08-12 07:51] LABS: Anisocytosis 1+; Hypochromasia 1+
--- NOTE | 2025-08-12 08:16 | PTTR_ITS ---
PT Notes Visit Reasons: Orthostasis, Urinary Retention, Confusion/Delirium Physical Therapy Inpatient Treatment Note Date: 08/12/2025 Precautions: Impaired safety awareness, at risk for falls. Standard. Activity as tolerated. Subjective: Said that she has been doing exercises and a lot of walking with her physical t herapist where she lives. Verbalized that she can manage with walking should she go home today. Wondering if the police could be called to report her daughter who she said has not shown up to pick her up so she could go home. Objective: General Observation: Resting in bed. Appeared anxious as she wanted to go home very badly. Nurse Ale explained that she needed to stay as she has not urin ated much. Mental Status: Alert and oriented as to person. Very anxious and wanted to be picked up right away by her daughter to go home. Pain: None reported Vital Signs: WNL as closely monitored by nursing staff Bed Mobility/Transfers: Minimal cueing provided for use of B hands as needed for support, movement sequence, AD management, and posture to reduce fall risk and minimize pain report Rolling stand by assist with HOB at 30 degrees Supine to sit stand by assist Sit to stand contact guard assist with FWW Stand to sit contact guard assist with FWW Bed to reclining chair contact guard assist with FWW Gait: Instructed patient with level surface ambulation of 250 feet requiring contact guard assist. Gabbi decreased. Step height decreased. Step length decreased. Denied headache, chest pain, and lightheadedness throughout session. No SOB. No LOB. THERA EX: Provided direct instruction and supervision with safe and correct performance of following exercises without need for phsyical assistance Seated marches x 10 Chair push ups x 10 B LAQs x 10 Bilateral heel raises x 10 Partial knee bends x 5 Balance: Static Sitting: Good Dynamic Sitting: Good Static Standing: Fair Dynamic Standing: Fair Assessment: Increased confusion with new environment. Once pacified, patient was able to complete a longer walk this morning with only contact guard assist compared to yesterday. Anxiety level over her daughter who failed to show up to pick her up increased after session. Patient will need PT at [facility] to facilitate return to independent ambulation using 4WW. Plan of Care/Treatment Plan: 1-2x/day, 7 days/week x 1 week. Plan of care has been reviewed with the TRANSMITTER OPERATOR providing the service under Physical Therapy direction. Initiate Physical Therapy intervention for pain management as needed, strengthening, bed mobility, transfers, gait, stairs, balance training, and use of assistive device. DISCHARGE RECOMMENDATIONS: Return to [facility] with PT TREATMENT CODE/TIME: 71473 x 20 minutes for 1 unit, 17211 x 14 minutes (8:16-8:50).
[2025-08-12] MEDS: DULoxetine 20 MG CAP PO (08:44)
[2025-08-12] MEDS: Amiodarone 200 MG TAB PO (08:44)
[2025-08-12] MEDS: Apixaban 2.5 MG TAB PO ×2 (08:44→20:41)
[2025-08-12] MEDS: Omeprazole 20 MG CAPCR 40 MG PO (08:44)
[2025-08-12] MEDS: Docusate Sodium 100 MG CAP PO ×2 (08:44→20:42)
[2025-08-12] MEDS: Metoprolol CR 25 MG TABCR PO ×2 (08:44→20:41)
[2025-08-12] MEDS: Normal Saline Flush 10 ML SYR IVP ×2 (08:45→20:43)
[2025-08-12] MEDS: Polyethylene Glycol 3350 17 GM PACKET PO (08:45)
--- NOTE | 2025-08-12 09:34 | CMPROGNOTE_ITS ---
Date of service: 08/12/25 Time of Service: 12:04 Care Management Progress Note Progress Note Text Progress Note Text: Martha was lying in bed and awake when CM met with her. Per report, urology consulted for urinary retention. Per communication with [place], the patient may return with a short-term catheter in place, provided a variance their facility completes, is approved. [facility] is able to provide services within the independent living setting. CM attempted to review the Advance Directives on file with the patient; however, Martha declined to review it and refused to appoint a new Health Care Agent, despite her current HCAs being reportedly . A palliative care consult has been requested by the CM. Per report, Martha?s orthostatic hypotension has resolved. CM will continue to follow. Discharge Potential Discharge Needs: PCP F/U Appt Anticipated Barriers to Discharge: None Identified Patient/Family Education Needs: Review discharge instructions, discuss Ask Me Three Transportation: Private vehicle Plan: Anticipate Martha will be discharged back to [facility] with new [facility] PT/RN once medically ready. It is recommended she follow up with community provider, palliative care, and discharge plan of care. She will transport via private vehicle by her son. CM will continue to follow. Social Determinants of Health Screening Will the Patient Participate in the Screening?: Unable to obtain
[2025-08-12 11:17] VITALS: PULSE 68
[2025-08-12] MEDS: Magnesium Citrate 300 ML BTL 150 ML PO (11:47)
--- NOTE | 2025-08-12 12:46 | CHAPLAIN ---
Martha was resting in bed when I visited. She was transferred here from [facility]. Martha told me that she plans to return to the [facility] when she has been living since February. She said that she's in touch with family and they are waiting to hear when she'll be discharged. I explained my role and offered support.
--- NOTE | 2025-08-12 16:07 | W.PM.PROGNOT ---
Date of Service Date of service: 08/12/25 Time of Service: 16:15 Assessment and Plan Assessment and plan (1) Atrial fibrillation: Status: Chronic Assessment and plan: Hx of A-fib - in NSR as per EP Ablation and Watchman [place] [facility] [place] subsequent development of confusion and bleeding complications- now stable On amiodarone until 09/07 Ongoing Eliquis until repeat ARIES at least On home dose metoprolol succinate (2) History of cardiac ablation: Status: Acute Assessment and plan: As above (3) Urinary retention: Status: Acute Assessment and plan: As per HPI Cr 0.9 and BUN 28 - could indicate dehydration VS other cause of BUN increase Urology consult with Sheeba Patel ANALYSIS MGR: - no indication for flomax - Bowel meds for constipation -Seen in Urology at [facility] - service closed - records requested -Family mentioned having [facility] Constipation resolved bleeding complication - stable hematoma in the pelvic region Will insert forbes - short term outpatient urology consult (4) Presence of Watchman left atrial appendage closure device: Status: Acute Assessment and plan: As above ARIES outpatient in 45 days- as per discussion with [place] [facility] will arrange - f/u by PCP outpatient (5) HTN (hypertension): Status: Chronic Assessment and plan: Imdur and Losartan still on hold prior to transfer [place] [facility] Ongoing metoprolol succinate Will continue to monitor (6) Orthostatic hypotension: Status: Acute Assessment and plan: On the day of transfer , Dr Downing reported ARIES w EF 45% mostl likely d/t intuibation during completion - could not have an evaluation of her IVC Ortho positive on arrival but resolved IVF discontinued Labs in AM (7) Delirium secondary to multiple medical problems: Status: Acute Assessment and plan: Improving confusion UA negative , NIH scale negative Seroquel 12.5 mg PO X1 on arrival - high threshold to repeat d/t amiodarone- effective in managing behavioral symptoms overnight Zoloft [place] [facility] [place] On Duloxetine discussed with Dr. Guadarrama Subjective Subjective Patient reports: no new complaints, feels better, tolerating liquids well, tolerating a regular diet, flatus and bowel movement; denies voiding w/o difficulty (retention despite - forbes ), diarrhea, nausea, vomiting, shortness of breath or fever Exam Narrative Exam Narrative: 89 year old female patient looking of stated age, improving mentation, calm and cooperative improved recollection, Alert to self, person, palace and situation, no acute distress, neurologically intact,unlabored breathing, clear lungs S1 S2 regular no murmur, LUE hematoma- stable, abdomen is round , non-distended, semi-firm, nontender, bowel sounds are present no CVA tenderness , moves all 4 extremities equally Objective Last Vital Signs Temp 36.7 C 08/12/25 07:27 Pulse 68 08/12/25 11:17 Resp 17 08/12/25 07:27 BP 147/77 H 08/12/25 07:27 Pulse Ox 89 L 08/12/25 07:27 Laboratory Results - last 24 hr 08/12/25 06:27 WBC 5.97 RBC 2.38 L Hgb 8.4 L Hct 25.5 L MCV 107 H MCH 35.3 H MCHC 32.9 RDW 17.0 H Plt Count 253 MPV 10.5 Immature Gran % 0.5 Neutrophils % 60.9 Lymphocytes % 19.3 Monocytes % 17.8 Eosinophils % 1.2 Basophils % 0.3 Nucleated RBC % 0.0 Absolute Neutrophils 3.64 Absolute Lymphocytes 1.15 L Absolute Monocytes 1.06 H Absolute Eosinophils 0.07 Absolute Basophils 0.02 RBC Morphology See Below Hypochromasia 1+ Anisocytosis 1+ Sodium 142 Potassium 3.9 Chloride 101 Carbon Dioxide 34.8 H Anion Gap 6.2 BUN 19 H Creatinine 0.8 Est GFR (CKD-EPI 2020) 70.83 Glucose 107 H Calcium 8.7 Time Spent with Patient Time Spent with Patient: >50 minutes Time was spent: preparing to see the patient(eg.review tests), obtaining and/or reviewing separately otained hiistory, ordering medications,tests, procedures, referring, communicating with other health healthcare technician, indepentently interpreting results, counseling the patient, care coordination and other
[2025-08-12] MEDS: Acetaminophen 500 MG TAB 1000 MG PO (20:40)
[2025-08-12] MEDS: Melatonin 3 MG TAB 9 MG PO (20:41)
[2025-08-12] MEDS: QUEtiapine 25 MG TAB 12.5 MG PO (20:42)
--- NOTE | 2025-08-13 | DI.US_ITS ---
Exam(s) US PELVIS RENAL EXAM: US PELVIS RENAL CLINICAL HISTORY: pelivic hematoma -urinary retention. TECHNIQUE: Ultrasound renal, pelvic, both abdmonal and tranvaginal was performed using standard protocol. COMPARISON: No exams were available for comparison FINDINGS: RENAL: Renal size in cm: Right: 11.6 left: 10.2 Echogenicity: Normal. Hydronephrosis: No. Cyst or mass: No. Nephrolithiasis: Prominence of the right renal pelvis. Mild hydronephrosis not excluded. Other findings: None. Bladder:Limited evaluation due to presence of Deleon catheter. Ureteral jets: Right: Visualized and unremarkable. Left: Not visualized Prevoid vol:53 cc Postvoid vol: Not performed due to presence of Deleon catheter. Color Doppler: Symmetric and uniform flow to both kidneys. PELVIC: The area of the right groin and suprapubic region were scanned. The patient is status post femoral artery catheterization 3 weeks ago. No evidence of pseudoaneurysm. No evidence of hematoma. Arterial calcifications are noted. IMPRESSION: 1. Prominence of the right renal pelvis versus mild right hydronephrosis. 2. No evidence right groin hematoma or pseudoaneurysm. DATA REPOSITORY:
[2025-08-13 05:25] VITALS: BP 150/89; PULSE 68; RESP 14; TEMP 36.8; O2SAT 88
[2025-08-13 07:35] LABS: Abs Immature Grans 0.02 10^3/uL (0.0-0.06); HCT 24.2 % (36.0-46.0); HGB 8.0 g/dL (11.2-15.7); Immature Grans % 0.4 %; MCH 35.1 pg (27.0-33.0); MCHC 33.1 % (32.0-36.0); MCV 106 fL (80-95); MPV 9.5 fL (8.0-11.0); Platelet Count 264 10^3/uL (130-400); RBC 2.28 10^6/uL (3.93-5.22); RDW 16.6 % (11.7-14.6); RDW-SD 62.4 fL; WBC 5.25 10^3/uL (4.4-10.8)
[2025-08-13 07:39] VITALS: BP 130/80; PULSE 70; RESP 17; TEMP 36.6; O2SAT 92
[2025-08-13 07:45] LABS: Anion Gap 4.9 mmol/L (3-11); BUN 13 mg/dL (7-18); CO2 33.1 mmol/L (21.0-32.0); Calcium 8.3 mg/dL (8.5-10.1); Chloride 100 mmol/L (98-107); Estimated GFR 83.13 (mL/min/1.73m2); Glucose 108 mg/dL (74-106); Magnesium 2.1 mg/dL (1.8-2.4); Potassium 4.0 mmol/L (3.5-5.1); Sodium 138 mmol/L (136-145)
[2025-08-13] MEDS: Amiodarone 200 MG TAB PO (08:00)
[2025-08-13] MEDS: DULoxetine 20 MG CAP PO (08:00)
[2025-08-13] MEDS: Docusate Sodium 100 MG CAP PO ×2 (08:00→19:30)
[2025-08-13] MEDS: Metoprolol CR 25 MG TABCR PO (08:00)
[2025-08-13] MEDS: Polyethylene Glycol 3350 17 GM PACKET PO (08:00)
[2025-08-13] MEDS: Apixaban 2.5 MG TAB PO ×2 (08:00→19:30)
[2025-08-13] MEDS: Acetaminophen 500 MG TAB 1000 MG PO ×2 (08:00→14:52)
[2025-08-13] MEDS: Omeprazole 20 MG CAPCR 40 MG PO (08:00)
[2025-08-13] MEDS: Normal Saline Flush 10 ML SYR IVP ×2 (08:01→19:31)
--- NOTE | 2025-08-13 10:12 | W.PM.PROGNOT ---
Date of Service Date of service: 08/13/25 Time of Service: 10:12 Assessment and Plan Assessment and plan (1) Atrial fibrillation: Status: Chronic Assessment and plan: Hx of A-fib - in NSR as per EP Ablation and Watchman procedure completed on 08/07/25 at [facility] with subsequent development of confusion and bleeding complications- now stable On amiodarone until 09/07 Ongoing Eliquis until repeat ARIES at least On home dose metoprolol succinate (2) History of cardiac ablation: Status: Acute Assessment and plan: As above (3) Urinary retention: Status: Acute Assessment and plan: As per HPI Cr 0.9 and BUN 28 - could indicate dehydration VS other cause of BUN increase Urology consult with Sheeba Patel CYCLE ANALYST: - no indication for flomax - Bowel meds for constipation -Seen in Urology at [facility] - service closed - records requested -Family mentioned having had short term forbes in the past at the assisted living facility Constipation resolve and ongoing BMs bleeding complication - stable hematoma in the pelvic region - may possibly linked to urinary retention Renal and pelvic imaging : 1. Prominence of the right renal pelvis versus mild right hydronephrosis. 2. No evidence right groin hematoma or pseudoaneurysm. Will insert forbes - short term outpatient urology consult at [facility] on d/c (4) Presence of Watchman left atrial appendage closure device: Status: Acute Assessment and plan: As above ARIES outpatient in 45 days- as per discussion with EP [facility], they will arrange - f/u by PCP outpatient (5) HTN (hypertension): Status: Chronic Assessment and plan: Imdur and Losartan still on hold prior to transfer from [facility] Ongoing metoprolol succinate Will continue to monitor (6) Orthostatic hypotension: Status: Acute Assessment and plan: On the day of transfer , Dr Downing reported ARIES w EF 45% mostl likely d/t intuibation during completion - could not have an evaluation of her IVC Ortho positive on arrival but resolved IVF discontinued Labs in AM (7) Macrocytic anemia: Status: Acute Assessment and plan: Admitted with H&H 8.3 & 24.8 MCV 106 now 8.0 &24.2 appears stable with know hx of bleeding s/p ablation and watchman Iron studies ordered (8) Delirium secondary to multiple medical problems: Status: Acute Assessment and plan: Improving confusion UA negative , NIH scale negative Seroquel 12.5 mg PO X1 on arrival - high threshold to repeat d/t amiodarone- effective in managing behavioral symptoms overnight No further need for above Zoloft held at [facility] On Cymbalta (9) Discharge planning issues: Status: Acute Assessment and plan: SNF w [facility] VS return to assisted living facility with indwelling forbes CM following discussed with Dr. Calzada Subjective Subjective Patient reports: no new complaints, feels better, tolerating liquids well, tolerating a regular diet, flatus and bowel movement; denies voiding w/o difficulty (retention despite - forbes ), diarrhea, nausea, vomiting, shortness of breath or fever Exam Narrative Exam Narrative: 89 year old female patient looking of stated age, improving congitevely remains calm and cooperative improved recollection of recent events, Alert to self, person, place and situation, no acute distress, neurologically intact,unlabored breathing, clear lungs S1 S2 regular no murmur, LUE hematoma- stable, abdomen is round , non-distended, semi-firm, nontender, bowel sounds are present,minimal supra-pubic induration - non-noxoius - no CVA tenderness , moves all 4 extremities equally Objective Last Vital Signs Temp 36.6 C 08/13/25 07:39 Pulse 70 08/13/25 07:39 Resp 17 08/13/25 07:39 BP 130/80 08/13/25 07:39 Pulse Ox 92 08/13/25 07:39 Laboratory Results - last 24 hr 08/13/25 07:06 WBC 5.25 RBC 2.28 L Hgb 8.0 L Hct 24.2 L MCV 106 H MCH 35.1 H MCHC 33.1 RDW 16.6 H Plt Count 264 MPV 9.5 Immature Gran % 0.4 Neutrophils % 54.1 Lymphocytes % 23.4 Monocytes % 20.6 Eosinophils % 1.1 Basophils % 0.4 Nucleated RBC % 0.0 Absolute Neutrophils 2.84 Absolute Lymphocytes 1.23 Absolute Monocytes 1.08 H Absolute Eosinophils 0.06 Absolute Basophils 0.02 Sodium 138 Potassium 4.0 Chloride 100 Carbon Dioxide 33.1 H Anion Gap 4.9 BUN 13 Creatinine 0.7 Est GFR (CKD-EPI 2020) 83.13 Glucose 108 H Calcium 8.3 L Magnesium 2.1 Time Spent with Patient Time Spent with Patient: >50 minutes Time was spent: preparing to see the patient(eg.review tests), obtaining and/or reviewing separately otained hiistory, ordering medications,tests, procedures, referring, communicating with other health care support representative, indepentently interpreting results, counseling the patient, care coordination and other
--- NOTE | 2025-08-13 10:16 | CMPROGNOTE_ITS ---
Date of service: 08/13/25 Time of Service: 10:16 Care Management Progress Note Progress Note Text Progress Note Text: Martha was sitting on the edge of the bed, visiting with her son, Addy, when CM met with her. Martha was very pleasant, but Addy voiced concerns that his mom is not steady enough on her feet to return to her assisted living facility. CM stated to Addy that Martha has been cleared by PT, and it is recommended that she return home with HH PT. SNF was not recommended. Addy wants to pursue SNF. He was told that because PT is not recommending SNF, any referral would likely be denied unless the family is willing to self pay. CM called the [facility], they stated that son, Kai, had just signed the forbes catheter variance today, and it was being sent to the court. It would be a few more days, likely, until it is approved. CM attempted to reach Addy, but was unable. CM did speak with Kai to explain the above. He seemed to understand that we are waiting for the variance to be approved, and in the meantime Martha will continue to have PT. Soon after, MAURA received a call from Addy. He was very upset with CM. He stated that the nurse practitioner told him that SNF referrals would be sent because his mom is too weak to walk on her own, and today she could not even open her ice cream. CM again discussed that Martha does not have a skilled need required for SNF. She will continue to work with PT, and CM will request an OT consult (which was requested). CM reiterated that the variance was just sent to the state and would likely take a few days, so in effect, a few more days of rehab. He stated that we are setting his mom up to fail and he hung up. Discharge Potential Discharge Needs: PCP F/U Appt Anticipated Barriers to Discharge: None Identified (awaiting a clearance from [facility] to be able to send Martha home with a forbes catheter) Patient/Family Education Needs: Review discharge instructions, discuss Ask Me Three Transportation: Private vehicle Plan: Anticipate Martha will be discharged back to [facility] with new [facility] PT/OT/RN once medically ready. It is recommended she follow up with community provider, palliative care, and discharge plan of care. She will transport via private vehicle with her son. CM will continue to follow. Social Determinants of Health Screening Will the Patient Participate in the Screening?: Unable to obtain
[2025-08-13 10:32] LABS: Iron 80 ug/dL (50-170); Total Iron Binding Capacity 289 ug/dL (250-450); Transferrin Sat 28 % (15-50)
[2025-08-13 10:46] LABS: Ferritin 243 ng/mL (8-252)
--- NOTE | 2025-08-13 13:50 | PTTR_ITS ---
PT Notes Visit Reasons: Orthostasis, Urinary Retention, Confusion/Delirium Inpatient Physical Therapy Treatment Note [facility] Date: 08/13/2025 PRECAUTIONS:fall risk, Standard, forbes, NEGIN SUBJECTIVE: Pt reports she is ready to go back to [place] OBJECTIVE:Pt presented semireclined on bed with no pants on. Pt agreeable to participate. ? PAIN: denied VITALS: ?monitored via telemetry throughout Therapeutic Activities ([id number][]): Direct one-on-one instruction in dynamic activities to improve functional performance. ? BED MOBILITY/TRANSFERS? Rolling L/R:independent Supine-sit: independent ? Sit-supine: independent? Sit-stand: Supervision with cues for hands to push up ? Stand-sit: Supervision with cues to reach back ? Bed-Chair: supervision with 4WW? Chair-bed: Supervision with 4WW Provided skilled cues and instruction on performance and technique throughout. - Facilitated safe and correct performance of level surface ambulation covering a distance of 300 feet x1 25 feet x 3 using 4wheeled walker with SBA Did not report of any increased pain. Denied headache, chest pain, and lightheadedness throughout activity. Minimal verbal cueing provided for AD management, directional changes, and upright posture. ASSESSMENT:? Pt tolerated session well. She is at risk for falls d/t the forbes catheter. She has poor insight into management of the catheter. She requires cues for hand placement for transition sit to from stand due to cognitive impairment. Next session will attempt sign on her 4WW to remind her to to push up from surface prior to standing. The hand supports on her personal 4WW were lower to promote upright posture and encourage her to keep the 4WW closer to her body. PLAN: 1-2x/day, 7 days/week x 1 week.Plan of care has been reviewed with the ASSISTANT FACILITY MANAGER providing the service under Physical Therapy direction. Initiate Physical Therapy intervention for strengthening, bed mobility, transfers, gait, stairs, balance training, use of assistive device TREATMENT CODE/TIME:25090/ [id number] DISCHARGE RECOMMENDATION: Home with HHPT
[2025-08-13] MEDS: Melatonin 3 MG TAB 9 MG PO (19:30)
[2025-08-13 19:40] VITALS: BP 161/91; PULSE 75; RESP 16; TEMP 36.9; O2SAT 95
[2025-08-14] MEDS: Acetaminophen 500 MG TAB 1000 MG PO ×2 (05:27→13:13)
[2025-08-14 07:01] LABS: Abs Immature Grans 0.04 10^3/uL (0.0-0.06); HCT 26.9 % (36.0-46.0); HGB 8.9 g/dL (11.2-15.7); Immature Grans % 0.5 %; MCH 34.9 pg (27.0-33.0); MCHC 33.1 % (32.0-36.0); MCV 106 fL (80-95); MPV 9.7 fL (8.0-11.0); Platelet Count 298 10^3/uL (130-400); RBC 2.55 10^6/uL (3.93-5.22); RDW 16.6 % (11.7-14.6); RDW-SD 63.2 fL; WBC 7.51 10^3/uL (4.4-10.8)
[2025-08-14 07:19] LABS: Anion Gap 6.3 mmol/L (3-11); BUN 9 mg/dL (7-18); CO2 31.7 mmol/L (21.0-32.0); Calcium 8.8 mg/dL (8.5-10.1); Chloride 100 mmol/L (98-107); Estimated GFR 83.13 (mL/min/1.73m2); Glucose 111 mg/dL (74-106); Potassium 4.0 mmol/L (3.5-5.1); Sodium 138 mmol/L (136-145)
[2025-08-14 07:45] VITALS: BP 167/99; PULSE 75; RESP 17; TEMP 36.6; O2SAT 89
--- NOTE | 2025-08-14 08:59 | PT.INTREAT ---
PT Notes Visit Reasons: Orthostasis, Urinary Retention, Confusion/Delirium Physical Therapy Inpatient Treatment Note Date: 08/14/2025 Precautions: Impaired safety awareness, at risk for falls. Standard. Activity as tolerated. Subjective: Agreeable and excited to work with PT today. Still looking forward to going home. Complained of increased pain in L UE which Nurse Shayne was aware of and has been managing. Objective: General Observation: Resting in bed. Appeared anxious as she wanted to go home very badly. Nurse Ale explained that she needed to stay as she has not urinated much. Mental Status: Alert and oriented as to person. Very anxious and wanted to be picked up right away by her daughter to go home. Pain: None reported Vital Signs: WNL as closely monitored by nursing staff Bed Mobility/Transfers: Minimal cueing provided for use of B hands as needed for support, movement sequence, AD management, and posture to reduce fall risk and minimize pain report Rolling stand by assist with HOB at 30 degrees Supine to sit stand by assist Sit to stand stand by assist with FWW Stand to sit stand by assist with FWW Bed to reclining chair stand by assist with FWW Gait: Instructed patient with level surface ambulation of 250 feet requiring stand by assist. Gabbi decreased. Step height decreased. Step length decreased. Denied headache, chest pain, and lightheadedness throughout session. No SOB. No LOB. In the afternoon covered about 700 feet with her 4WW with just stand by assist. THERA EX: Provided direct instruction and supervision with safe and correct performance of following exercises without need for phsyical assistance Using 2.5 lb AW in B sides patient was able to tolerate stepping exercises while holding onto B rails; she was aslo able to go aroung the practice steps with one hand holding onto one rail. Minimal SOB resolved with rest. Balance: Static Sitting: Good Dynamic Sitting: Good Static Standing: Fair Dynamic Standing: Fair Assessment: Improved functional performance with no undue fatigue. L UE appeared more swollen and discolored which nurse and MD are aware of. Walking tolerance now significantly imprved with no physical assistance needed. Plan of Care/Treatment Plan: 1-2x/day, 7 days/week x 1 week. Plan of care has been reviewed with the ENTERPRISE INFRASTRUCTURE ARCHITECT providing the service under Physical Therapy direction. Initiate Physical Therapy intervention for pain management as needed, strengthening, bed mobility, transfers, gait, stairs, balance training, and use of assistive device. DISCHARGE RECOMMENDATIONS: Return to [facility] with PT TREATMENT CODE/TIME: Session 1--32130 x 15 minutes for 1 unit, 83752 x 10 minutes for 1 unit (8:59-9:24). Session2--22425 x 24 minutes for 2 units (14:56-15:20).
[2025-08-14 09:52] LABS: Transferrin 240 mg/dL (201-352)
[2025-08-14] MEDS: Docusate Sodium 100 MG CAP PO ×2 (09:57→20:12)
[2025-08-14] MEDS: Omeprazole 20 MG CAPCR 40 MG PO (09:57)
[2025-08-14] MEDS: Metoprolol CR 25 MG TABCR PO ×2 (09:57→20:12)
[2025-08-14] MEDS: Apixaban 2.5 MG TAB PO ×2 (09:57→20:13)
[2025-08-14] MEDS: Polyethylene Glycol 3350 17 GM PACKET PO (09:57)
[2025-08-14] MEDS: Amiodarone 200 MG TAB PO (09:57)
[2025-08-14] MEDS: DULoxetine 20 MG CAP PO (09:57)
[2025-08-14] MEDS: Normal Saline Flush 10 ML SYR IVP (09:58)
--- NOTE | 2025-08-14 10:21 | CMPROGNOTE_ITS ---
Date of service: 08/14/25 Time of Service: 12:40 Care Management Progress Note Progress Note Text Progress Note Text: Martha was alert and sitting up in a chair, engaging with family members at the time CM went to visit. Martha was utilizing a pocketalker at this time. Per report, her Deleon catheter has been removed, and she is currently undergoing a voiding trial. A bladder scan is scheduled for later today to assess urinary retention. CM contacted [facility] to inquire about the variance required for Martha to return with a Deleon catheter if needed. Per Hortencia at [place], Martha may return to the facility prior to formal variance approval, as the request has already been initiated. Martha expressed confidence that she will not require a Deleon catheter in order to return to the facility. Additionally, her son Kai has stated he will be out of state but remains willing to assist with transportation back to her assisted living facility when needed. CM will continue to follow and coordinate discharge arrangements as appropriate. Discharge Potential Discharge Needs: PCP F/U Appt Anticipated Barriers to Discharge: None Identified Patient/Family Education Needs: Review discharge instructions, discuss Ask Me Three Transportation: Private vehicle (Kai/family) Plan: Anticipate Martha will be discharged back to [facility] with new [facility] PT/OT/RN once medically ready. It is recommended she follow up with community provider, palliative care, Urology and discharge plan of care. She will transport via private vehicle with her son. CM will continue to follow. Social Determinants of Health Screening Will the Patient Participate in the Screening?: Unable to obtain
--- NOTE | 2025-08-14 13:06 | PGE_ITS ---
Date of Service Date of service: 08/14/25 Time of Service: 13:06 Assessment and Plan Assessment and plan (1) Atrial fibrillation: Status: Chronic Assessment and plan: Came in from [facility] s/p Watchman and ablation in the setting Hx of A-fib - in NSR as per EP at [facility] Ablation and Watchman procedure completed on 08/07/25 at [facility] with subsequent development of confusion and bleeding complications which were stable on acceptance On amiodarone until 09/07 as per EP [facility] discharge and discussion Eliquis until repeat ARIES - to be aranged by [facility] EP 45 days s/p procedure Continue home dose metoprolol succinate (2) History of cardiac ablation: Status: Acute Assessment and plan: As above (3) Presence of Watchman left atrial appendage closure device: Status: Acute Assessment and plan: As per point 1 ARIES outpatient in 45 days- as per discussion with EP [facility], they will arrange - f/u by PCP outpatient (4) Urinary retention: Status: Acute Assessment and plan: As per point 1 UA negative on arrival BUN 28 and Cr 0.9 initially - could indicate dehydration VS other cause of BUN increase - now 9 and 0.7 s/p IV hydration 08/11 Urology consult with Sheeba Patel WHEAT WASHER: - no indication for flomax - Bowel meds for constipation -Seen in Urology at [facility] - service closed - records requested and could not find last urology notes -Family mentioned having had short term indwelling urinary catheter at [facility] and at home prior to assisted living admission d/t retention No further constipation and ongoing BMs- constipation was considered as a possible primary etiology 08/13 - non-noxious induration in the suprapubic region ? stable hematoma - may possibly linked to urinary retention - discussed with urology on 08/13 w recommendation for imaging 08/13/25: Renal and pelvic imaging : 1. Prominence of the right renal pelvis versus mild right hydronephrosis. 2. No evidence right groin hematoma or pseudoaneurysm. Forbes inserted on 08/12 - short term- now discontinued with voiding trial t tressa Plan for outpatient urology consult at [facility] if discharged with indwelling urinary catheter (5) HTN (hypertension): Status: Chronic Assessment and plan: Imdur and Losartan still on hold prior to transfer from [facility] - will slowly reintroducing losartan 08/14 then both losartan and Imdur CR in AM Continue metoprolol succinate Will continue to monitor (6) Orthostatic hypotension: Status: Acute Assessment and plan: Resolved and as per point 5 On the day of transfer , Dr Downing reported ARIES w EF 45% mostl likely d/t intubation during completion - could not have an evaluation of her IVC Ortho positive on arrival but has resolved IVF discontinued Labs in AM (7) Macrocytic anemia: Status: Acute Assessment and plan: Admitted with H&H 8.3 & 24.8 MCV 106 now 8.0 &24.2 appears stable with know hx of bleeding s/p ablation and watchman Iron studies ordered (8) Delirium secondary to multiple medical problems: Status: Acute Assessment and plan: Improving confusion- resolving UA negative , NIH scale negative Seroquel 12.5 mg PO X1 on arrival d/t intense confusion and agitation - high threshold to repeat d/t amiodarone- effective in managing behavioral symptoms overnight No further need for above Zoloft held at [facility] Ongoing Cymbalta (9) Hyperlipidemia: Status: Acute Assessment and plan: On home dose zocor (10) Discharge planning issues: Status: Acute Assessment and plan: SNF not an option as per discussion w CM and plan w family- read CM notes please resolution of urinary retention VS return to assisted living facility with indwelling forbes CM following Med rec ordered 08/10 and 08/[address] Calzada Subjective Subjective Patient reports: no new complaints, feels better, tolerating liquids well, tolerating a regular diet, voiding w/o difficulty (s/p forbes removal PVR 250 ml), flatus and bowel movement; denies diarrhea, nausea, vomiting, shortness of breath or fever Exam Narrative Exam Narrative: 89 year old female patient looking of stated age, improving congitevely remains calm and cooperative improved recollection of recent events, Alert to self, person, place and situation, no acute distress, neurologically intact,unlabored breathing, clear lungs S1 S2 regular no murmur, LUE hematoma- stable, abdomen is round , non-distended, semi-firm, nontender, bowel sounds are present,no supra-pubic induration forbes d/c no CVA tenderness , moves all 4 extremities equally Objective Last Vital Signs Temp 36.6 C 08/14/25 07:45 Pulse 75 08/14/25 07:45 Resp 17 08/14/25 07:45 BP 167/99 H 08/14/25 07:45 Pulse Ox 89 L 08/14/25 07:45 Laboratory Results - last 24 hr 08/13/25 08/14/25 07:06 06:26 WBC 7.51 RBC 2.55 L Hgb 8.9 L Hct 26.9 L MCV 106 H MCH 34.9 H MCHC 33.1 RDW 16.6 H Plt Count 298 MPV 9.7 Immature Gran % 0.5 Neutrophils % 68.2 Lymphocytes % 14.9 Monocytes % 15.4 Eosinophils % 0.7 Basophils % 0.3 Nucleated RBC % 0.3 Absolute Neutrophils 5.12 Absolute Lymphocytes 1.12 L Absolute Monocytes 1.16 H Absolute Eosinophils 0.05 Absolute Basophils 0.02 Sodium 138 Potassium 4.0 Chloride 100 Carbon Dioxide 31.7 Anion Gap 6.3 BUN 9 Creatinine 0.7 Est GFR (CKD-EPI 2020) 83.13 Glucose 111 H Calcium 8.8 Transferrin 240 Time Spent with Patient Time Spent with Patient: >50 minutes Time was spent: preparing to see the patient(eg.review tests), obtaining and/or reviewing separately otained hiistory, ordering medications,tests, procedures, referring, communicating with other health account executive healthcare, indepentently interpreting results, counseling the patient, care coordination and other
[2025-08-14] MEDS: Losartan 25 MG TAB PO (18:15)
[2025-08-14] MEDS: Melatonin 3 MG TAB 9 MG PO (20:12)
[2025-08-14] MEDS: Simvastatin 10 MG TAB 5 MG PO (20:12)
[2025-08-14 20:26] VITALS: BP 162/96; PULSE 74; RESP 15; TEMP 36.6; O2SAT 94
[2025-08-15 06:55] LABS: Abs Immature Grans 0.04 10^3/uL (0.0-0.06); HCT 27.2 % (36.0-46.0); HGB 9.4 g/dL (11.2-15.7); Immature Grans % 0.4 %; MCH 36.6 pg (27.0-33.0); MCHC 34.6 % (32.0-36.0); MCV 106 fL (80-95); MPV 10.1 fL (8.0-11.0); Platelet Count 351 10^3/uL (130-400); RBC 2.57 10^6/uL (3.93-5.22); RDW 17.1 % (11.7-14.6); RDW-SD 63.6 fL; WBC 10.96 10^3/uL (4.4-10.8)
[2025-08-15 07:07] LABS: Anion Gap 7.1 mmol/L (3-11); BUN 10 mg/dL (7-18); CO2 28.9 mmol/L (21.0-32.0); Calcium 8.6 mg/dL (8.5-10.1); Chloride 96 mmol/L (98-107); Estimated GFR 70.83 (mL/min/1.73m2); Glucose 123 mg/dL (74-106); Potassium 3.8 mmol/L (3.5-5.1); Sodium 132 mmol/L (136-145)
[2025-08-15 07:43] VITALS: BP 131/91; PULSE 74; RESP 16; TEMP 36.7; O2SAT 94
[2025-08-15] MEDS: Losartan 25 MG TAB 75 MG PO (08:31)
[2025-08-15] MEDS: Amiodarone 200 MG TAB PO (08:32)
[2025-08-15] MEDS: Isosorbide Mononitrate 30 MG TABCR PO (08:32)
[2025-08-15] MEDS: Apixaban 2.5 MG TAB PO (08:32)
[2025-08-15] MEDS: Metoprolol CR 25 MG TABCR PO (08:32)
[2025-08-15] MEDS: DULoxetine 20 MG CAP PO (08:32)
[2025-08-15] MEDS: Omeprazole 20 MG CAPCR 40 MG PO (08:32)
[2025-08-15] MEDS: Normal Saline Flush 10 ML SYR IVP (08:32)
[2025-08-15] MEDS: Docusate Sodium 100 MG CAP PO (08:33)
--- NOTE | 2025-08-15 09:36 | DSE_ITS ---
Date of service: 08/15/25 Time of Service: 09:36 DS: Diagnosis Discharge Diagnosis (1) Atrial fibrillation: Status: Chronic (2) History of cardiac ablation: Status: Acute (3) Presence of Watchman left atrial appendage closure device: Status: Acute (4) Urinary retention: Status: Acute (5) HTN (hypertension): Status: Chronic (6) Orthostatic hypotension: Status: Acute (7) Macrocytic anemia: Status: Acute (8) Delirium secondary to multiple medical problems: Status: Acute (9) Hyperlipidemia: Status: Acute (10) Discharge planning issues: Status: Acute Discharge Plan Disposition Patient Disposition: Home Condition: Fair Discharge Details Reason For Visit: Orthostasis, Urinary Retention, Confusion/Delirium Admit Date/Time: 08/10/25 16:49 Admit Provider: Jeremiah Guadarrama Attending Provider: Jeremiah Guadarrama Primary Care Provider: Luzma Collins [facility] Course Hospital Course: The patient is an 89-year-old female with a history of hypertension and atrial fibrillation, status post completion of ablation and Watchman procedure on 08/07/2025 at [facility]. She was transferred to [facility] due to acute confusion, with concerns for undiagnosed dementia and superimposed delirium likely related to acute hospitalization. She also exhibited urinary retention, with a bladder scan showing 500?600 cc and a post-void residual of 200 cc after staff-assisted voiding. Imaging showed no signs of constipation or obstruction, but did show mild right hydronephrosis. No urinary tract infection was identified. Patient did have an indwelling urinary catheter that has been discontinued 08/14 and she has been voiding on her own since, with ~ 200 ml PRV. Upon arrival at [facility], the patient was confused, agitated, and restless. She was administered Seroquel (low dose x1) for agitation. Due to the QT-prolongation risk associated with concurrent amiodarone, further antipsychotics were avoided. She had received Zyprexa (Olanzapine) once during the prior hospitalization; no other antipsychotic use was noted. Orthostatic hypotension noted on arrival resolved following intravenous hydration. Labs indicated dehydration as the likely etiology. Medications at Discharge: * Amiodarone: Continue until 09/07/2025 per EP (Dr. Downing) * Eliquis (Apixaban) 2.5 mg PO BID: Continue until outpatient [facility] (to be arranged by EP in approximately 45 days) * Other medications per home regimen and adjusted inpatient recommendations Follow-Up: * EP/Cardiology: Outpatient [facility] in ~45 days * Urology: Outpatient follow-up at [facility] for urinary retention and catheter management * Primary Care: Evaluation for cognitive assessment and ongoing medical management * Assisted Living Facility: Transfer with indwelling catheter and medication reconciliation completed and referral to home health PT/OT/RN/BIOMEDICAL EQUIPMENT SUPPORT SPECIALIST. Disposition: Discharged in stable condition to assisted living facility with ongoing monit oring for mental status, anticoagulation compliance, and urinary catheter management. Home Meds and New Rx's Prescriptions: Continued amiodarone [Pacerone] 200 mg tablet 200 mg PO DAILY Patient Comments: to be stopped 09/07/2025 Eliquis 2.5 mg tablet 2.5 mg PO BID duloxetine 20 mg capsule,delayed release(DR/EC) 20 mg PO DAILY metoprolol succinate 25 mg tablet extended release 24 hr 25 mg PO BID isosorbide mononitrate 30 mg tablet extended release 24 hr 30 mg PO DAILY losartan 50 mg tablet 75 mg PO DAILY omeprazole 40 mg capsule,delayed release(DR/EC) 40 mg PO DAILY simvastatin 5 mg tablet 5 mg PO DAILY Discharge Instructions Additional Instructions: Medications: * Amiodarone ? Continue as prescribed. * Eliquis (Apixaban) 2.5 mg ? Take by mouth twice daily (BID) until outpatient [facility] is completed (scheduled by EP in ~45 days) * Other medications ? Resume home medications as instructed by your medical team Follow-Up Appointments: * Electrophysiology/Cardiology: * Outpatient [facility] in ~45 days (to be scheduled by the EP team) * Urology ([facility]): * Outpatient follow-up for urinary retention. * Primary Care Provider (PCP): * Within 1?2 weeks for general check-up and cognitive evaluation Home Health will contact you to arrange a time to come visit you. Care Instructions: Mental Status Monitoring * Expect gradual improvement in confusion; ensure a calm, familiar environment * Monitor for return or worsening of confusion, agitation, or behavioral changes Hydration * Encourage adequate fluid intake unless otherwise directed * Monitor for signs of dehydration (dizziness, low urine output, dry mouth) Anticoagulation * Take Eliquis exactly as prescribed * Do not skip doses * Watch for signs of bleeding: bruising, blood in urine or stool, prolonged bleeding When to Seek Medical Help: Call your healthcare provider or seek emergency care if the patient has: * Increased confusion or sudden behavioral changes * Fever, chills, or signs of infection * Chest pain, shortness of breath, or irregular heartbeat * Bleeding or signs of a blood clot (e.g., leg swelling, redness) Referrals: [facility] Cardiac Electrophysiology [Outside] Referral Note: as planned Cooper Bro MD [ [facility] STAFF PHYSICIAN, Urology] Referral Note: Post hospitalization for urinary retention Luzma Collins [Primary Care Provider, Medicine] Referral Note: 1-2 weeks status post hospitalization. Activity:: Activity as Tolerated Equipment/Supplies:: No Equipment Needed Diet:: Normal Diet Discharge Orders Discharge Orders: Discharge Order (Routine); Ordered 08/15/25 Ordered By: Jyotsna Bridges DS: Summary Time Spent with Patient providing and/or coordinating discharge services: Greater than 30 minutes Status at Discharge Functional status at discharge: uses cane/walker Overall status at discharge: patient is back to baseline Mental Status: mental status grossly normal Speech and Movement: speech and movement normal Mood: congruent mood Affect: normal affect Exam Narrative Exam Narrative: * General: * 89-year-old female, appears stated age * Calm, cooperative, in no acute distress * Cognitively improving; better recollection of recent events * Mental Status: * Alert and oriented to self, person, place, and situation * Neurologic: * Grossly neurologically intact * Moves all four extremities equally * Respiratory: * Breathing unlabored * Lungs clear to auscultation bilaterally * Cardiovascular: * Heart sounds (S1, S2) regular * No murmurs appreciated * Extremities: * Left upper extremity hematoma noted ? stable, no signs of active bleeding or expansion * Abdomen: * Round, non-distended, semi-firm, non-tender * Bowel sounds present * No suprapubic induration * Deleon catheter removed * Flank/CVA: * No costovertebral angle (CVA) tenderness Psych Mental Status: mental status grossly normal Speech and Movement: speech and movement normal Mood: congruent mood Affect: normal affect DS: Data Vitals/I&O Vitals and I&O: Vital Signs Temperature 36.7 C 08/15/25 07:43 Temperature Source Temporal Artery Scan 08/15/25 07:43 Pulse 74 08/15/25 07:43 Respiratory Rate 16 08/15/25 07:43 Blood Pressure 131/91 H 08/15/25 07:43 Blood Pressure Mean 104 08/15/25 07:43 Pulse Oximetry 94 08/15/25 07:43 Oxygen Delivery Method Room Air 08/15/25 07:43 Oxygen Flow Rate 0 08/15/25 07:43 Pain Level 6 08/15/25 07:43 Comment pt refused her vitals. nurse notified. 08/12/25 20:30 Intake & Output 08/14/25 08/14/25 08/15/25 11:59 23:59 11:59 Intake Total 680 / 1090 410 / 1090 Output Total 2150 / 3600 1450 / 3600 850 / 850 Balance -1470 / -2510 -1040 / -2510 -850 / -850 Weight 53.9 kg 53.5 kg Intake: Oral 680 / 1090 410 / 1090 Output: Urine 2150 / 3600 1450 / 3600 850 / 850 Other: Urine Color Yellow Pale Pale Yellow Urine Appearance Clear Clear Cloudy Urine Odor Normal Normal Comment unmeasured, pt moved hat. Stool Size Moderate Stool Characteristics Formed Data Completed and Pending Labs on day of discharge: Labs from last 24 hours 08/15/25 08/13/25 06:10 07:06 WBC 10.96 H RBC 2.57 L Hgb 9.4 L Hct 27.2 L MCV 106 H MCH 36.6 H MCHC 34.6 RDW 17.1 H Plt Count 351 MPV 10.1 Immature Gran % 0.4 Neutrophils % 73.4 Lymphocytes % 13.1 Monocytes % 12.7 Eosinophils % 0.2 Basophils % 0.2 Nucleated RBC % 0.3 Absolute Neutrophils 8.04 H Absolute Lymphocytes 1.44 Absolute Monocytes 1.39 H Absolute Eosinophils 0.02 Absolute Basophils 0.02 Sodium 132 L Potassium 3.8 Chloride 96 L Carbon Dioxide 28.9 Anion Gap 7.1 BUN 10 Creatinine 0.8 Est GFR (CKD-EPI 2020) 70.83 Glucose 123 H Calcium 8.6 Transferrin 240 PFSH All Active Problems (Updated 08/14/25 @ 18:01 by Nicole Louis APRN) Hyperlipidemia (Acute) Discharge planning issues (Acute) Macrocytic anemia (Acute) Anemia (Chronic) Urinary retention (Acute) Delirium secondary to multiple medical problems (Acute) Orthostatic hypotension (Acute) HTN (hypertension) (Chronic) Presence of Watchman left atrial appendage closure device (Acute) History of cardiac ablation (Acute) Atrial fibrillation (Chronic) Social History Smoking/Tobacco Use Status: Never Smoking risk assessment performed?: Yes Time Spent with Patient Time Spent with Patient: 45-69 minutes Time was spent: preparing to see the patient(eg.review tests), ordering medica tions,tests, procedures, referring, communicating with other health healthcare technician, indepentently interpreting results, counseling the patient and care coordination
--- NOTE | 2025-08-15 09:47 | PDOC.CMDIS ---
Date of service: 08/15/25 Time of Service: 09:47 LACE Index Scoring Tool Questions: Length of Stay (in days): 4 - 6 Was the patient admitted via the E.D.?: No E.D. Visits: 0 Answers: Total Score: 4 Risk of Readmission: Low Risk Care Management Discharge Plan Reason for Hospitalization: Orthostasis, urinary retention, confusion/delirium Discharge Plan: Martha will be discharged back to [facility] with new A PT/OT/RN. Per provider, she will not be discharged with a catheter; CM notified facility. It is recommended she follow up with community provider, palliative care, [facility] Urology (urology at PCP unavailable) and discharge plan of care. She will transport via private vehicle with her son, Kai. Patient/Family Education Needs: Review of discharge instruction, activity, limitations, and plan of care. Discuss ask me three. Services Needed at Discharge: Home Health Care Services
--- NOTE | 2025-08-15 10:07 | PDOC.HHF2F_ITS ---
Date of service: 08/15/25 Time of Service: 10:07 Home Health Referral Home Health Orders Clinical synopsis of why skilled professionals are needed: The patient is an 89-year-old female with a history of hypertension and atrial fibrillation, status post completion of ablation and Watchman [place]07[place] [facility] She was transferred to [facility] due to acute confusion, with concerns for undiagnosed dementia and superimposed delirium likely related to acute hospitalization. She also exhibited urinary retention, with a bladder scan showing 500?600 cc and a post-void residual of 200 cc after staff-assisted voiding. Imaging showed no signs of constipation or obstruction, but did show mild right hydronephrosis. No urinary tract infection was identified. Patient did have an indwelling urinary catheter that has been discontinued 08/14 and she has been voiding on her own since, with ~ 200 ml PRV. Upon arrival at [facility], the patient was confused, agitated, and restless. She was administered Seroquel (low dose x1) for agitation. Due to the QT-prolongation r isk associated with concurrent amiodarone, further antipsychotics were avoided. She had received Zyprexa (Olanzapine) once during the prior hospitalization; no other antipsychotic use was noted. Orthostatic hypotension noted on arrival resolved following intravenous hydration. Labs indicated dehydration as the likely etiology. Medical diagnosis necessitation home health referral: Urinary retention; Confusion; S/P Watchman procedure 08/07/[place] [facility] Registered Nurse: Check all that apply Instruct on new or changed medication(s)/assess compliance: Ordered Assess for exacerbation of medical condition, instruct patient/caregivers on signs and symptoms to report for early detection: Ordered Physical Therapist: Check all that apply Increase strength & endurance for safe mobility at home: Ordered To design/establish home maintenance program: Ordered Fall reduction therapy program for patient with history of frequent falls: Ordered Occupational Therapist: Evaluate and treat for patient unable to perform ADL/IADL/self-care: Ordered Upper extremity strengthening, range and motion: Ordered Guard Range: Assist with community resources: Ordered Assist with correction care planning: Ordered Home Bound Status Requires the aid of supportive device (check all that apply): Walker Encounter Date and Reason: I certify that a FTF encounter for this patient was performed on August 15, 2025 and that such encounter was related to the primary reason the patient requires home health services. The encounter was conducted in the following manner: * By me as the certifying physician, TECHNOLOGY ANALYST, PA or * By an inpatient physician, TECHNOLOGY ANALYST or PA during an inpatient stay who communicated findings to me, Certification And Authentication I certify that I composed the above information based on my clinical judgment relating to this patient's medical condition and, if applicable, clinical findings communicated to me by the NPP or inpatient physician who performed the FTF encounter. Name of Provider that will be monitoring home health services: Luzma Collins
--- NOTE | 2025-08-15 10:18 | PT.INTREAT ---
PT Notes Visit Reasons: Orthostasis, Urinary Retention, Confusion/Delirium Date: 08/15/2025 PRECAUTIONS: Impaired safety awareness, at risk for falls. Standard. Activity as tolerated. SUBJECTIVE: pt in bed when approached for therapy session, pt agreed to participating with therapy session. OBJECTIVE: ? PAIN: denies VITALS: Monitored by nursing Therapeutic Activities 54245: Direct one-on-one instruction in dynamic activities to improve functional performance. ?? BED MOBILITY/TRANSFERS? Rolling L/R: independent Supine-sit: ?independent? Sit-supine: ?independent Sit-stand: ? supervision ? Stand-sit: ?? supervision Bed-Chair:? ? supervision? Chair-bed: supervision Provided skilled cues and instruction on performance and technique throughout. Gait Training 07241: Direct one-on-one instruction and skilled instruction in: Employing an assistive device Modified weight-bearing status Movement sequencing Turning and movement with proper form Provided verbal cues for equipment management and technique Provided instruction in gait pattern Patient education regarding pacing and breathing techniques to maximize activity tolerance? GAIT? Assistive Device: ??4WW ? Weight bearing: FWB Assist: ? ?SBA ? Distance:?? ?600' x1, 300'x1 ? Deviation: ?Stoop forward posture? STAIRS:? 6x4, 4x6, step over step bilateral handrail Supervision ? Therapeutic Exercises 14056: Direct one-on-one instruction in therapeutic exercises to develop strength, endurance, range of motion and flexibility. Exercises Sit to stand [id number] Seated marching Seated SAQ [id number] Seated LAQ [id number] Seated abduction [id number] Standing hip 3way Standing heel raise [id number] Standing toe raise [id number] Provided skilled instruction in proper exercise performance Provided skilled manual cues to facilitate proper muscle recruitment and/or form: ASSESSMENT:?Pt tolerated activity well, reports left wrist pain during supported sit to stand, pt stayed in recliner after therapy session, pt expressed she is looking forward to going home today. PLAN: Continue with balance training, global strengthening and general conditioning for improved safety, mobility and activity tolerance until pt is ready for DC. TREATMENT CODE/TIME: [id number], 69333h3 30mins (8:20-8:50am)
== END 2025-08-15 12:06 | disposition home or self-care (01) | DRG 696 ==
PROVIDERS: Nurse Practitioner Acute Care; Admitting Provider Family Medicine; PCP Nurse Practitioner Family; Responsible Provider Nurse Practitioner Family; Visit Provider Family Medicine
DX: R33.9 Retention of urine, unspecified (principal); F05 Delirium due to known physiological condition; I10 Essential (primary) hypertension; I95.1 Orthostatic hypotension; D53.8 Other specified nutritional anemias; K59.00 Constipation, unspecified; Z95.818 Presence of other cardiac implants and grafts; Z79.01 Long term (current) use of anticoagulants
CPT/HCPCS: 00123; 36415; 80048; 80053; 97110; 97162; 97530; 99222; 76770; 76856; 81003; 82140; 82728; 83540; 83550; 83735; 84466; 85025; 94760; 99223; 99233; 99239